=== PATIENT | female | born 1940 | race Caucasian/White ===

== ENCOUNTER → 2016-12-15 | Outpatient (CLI) | payer MEDICARE, OTHER ==
[2016-12-15 09:39] LABS: ALANINE AMINOTRANSFERASE 38 U/L (9-52); ALBUMIN 3.6 g/dL (3.5-5.0); ALKALINE PHOSPHATASE 75 U/L (38-126); ASPARTATE AMINO TRANSFERASE 23 U/L (14-36); BILIRUBIN,DIRECT 0.3 mg/dL (0.0-0.4); BILIRUBIN,TOTAL 0.8 mg/dL (0.2-1.3); CHOLESTEROL 116.38 mg/dL (0-200); DIRECT LDL 38 mg/dL (<100); Direct HDL 58 mg/dL (>40); TOTAL PROTEIN 6.2 g/dL (6.3-8.2); TRIGLYCERIDES 48 mg/dL (<150)
== END ==
LOC: OD 08:10
PROVIDERS: ATTEND Specialist
DX: E11.22 Type 2 diabetes mellitus with diabetic chronic kidney disease (principal); N18.2 Chronic kidney disease, stage 2 (mild); E78.5 Hyperlipidemia, unspecified; E66.3 Overweight; I10 Essential (primary) hypertension; I34.9 Nonrheumatic mitral valve disorder, unspecified; I87.2 Venous insufficiency (chronic) (peripheral); M06.9 Rheumatoid arthritis, unspecified; Z79.899 Other long term (current) drug therapy
CPT/HCPCS: 36415; 80061; 80076; 83036

== ENCOUNTER → 2017-04-19 | Outpatient (CLI) | payer MEDICARE, OTHER ==
[2017-04-19 09:57] LABS: HEMATOCRIT 37.4 % (36.0-47.0); HEMOGLOBIN 12.4 g/dL (12.0-15.5); HGB HCT DIFFERENCE -0.2; MEAN CORPUSCULAR HGB CONC 33.1 g/dL (32.0-36.0); MEAN CORPUSCULAR VOLUME 90 fl (80-97); RED BLOOD COUNT 4.14 10^6/uL (3.72-5.28); RED CELL DISTRIBUTION WIDTH 14.1 % (11.5-14.0); WHITE BLOOD COUNT 5.3 10^3/uL (4.0-10.5)
[2017-04-19 10:21] LABS: ANION GAP 7 (5-19); BLOOD UREA NITROGEN 31 mg/dL (7-20); CALCIUM 10.5 mg/dL (8.4-10.2); CARBON DIOXIDE 26 mmol/L (22-30); CHLORIDE 109 mmol/L (98-107); CREATININE RESULT 0.82 mg/dL (0.52-1.25); GLUCOSE 81 mg/dL (75-110); POTASSIUM 4.7 mmol/L (3.6-5.0); SODIUM 142.2 mmol/L (137-145)
[2017-04-19 14:32] LABS: APPEARANCE,URINE SLIGHTLY-CLOUDY; BILIRUBIN,URINE NEGATIVE (NEGATIVE); GLUCOSE, URINE NEGATIVE (NEGATIVE); KETONES,URINE NEGATIVE (NEGATIVE); LEUKOCYTE ESTERASE,URINE LARGE (NEGATIVE); NITRITE,URINE NEGATIVE (NEGATIVE); PROTEIN,URINE 100 mg/dL (NEGATIVE); URINE SPECIFIC GRAVITY 1.016; UROBILINOGEN,URINE NEGATIVE mg/dL (<2.0)
== END ==
LOC: OD 08:30
PROVIDERS: ATTEND Internal Medicine Nephrology
DX: I12.9 Hypertensive chronic kidney disease with stage 1 through stage 4 chronic kidney disease, or unspecified chronic kidney disease (principal); N18.3 Chronic kidney disease, stage 3 (moderate); D64.9 Anemia, unspecified
CPT/HCPCS: 36415; 80048; 81001; 82043; 82570; 85027

== ENCOUNTER → 2017-06-29 | Outpatient (CLI) | payer MEDICARE, OTHER ==
[2017-06-29 11:15] LABS: ALANINE AMINOTRANSFERASE 35 U/L (9-52); ALBUMIN 3.6 g/dL (3.5-5.0); ALKALINE PHOSPHATASE 73 U/L (38-126); ASPARTATE AMINO TRANSFERASE 18 U/L (14-36); BILIRUBIN,DIRECT 0.4 mg/dL (0.0-0.4); BILIRUBIN,TOTAL 0.7 mg/dL (0.2-1.3); CHOLESTEROL 115.49 mg/dL (0-200); Direct HDL 65 mg/dL (>40); TOTAL PROTEIN 5.5 g/dL (6.3-8.2); TRIGLYCERIDES 46 mg/dL (<150)
[2017-06-29 11:26] LABS: DIRECT LDL 38 mg/dL (<100)
== END ==
LOC: OD 09:35
PROVIDERS: ATTEND Specialist
DX: E11.9 Type 2 diabetes mellitus without complications (principal); E78.5 Hyperlipidemia, unspecified; I12.9 Hypertensive chronic kidney disease with stage 1 through stage 4 chronic kidney disease, or unspecified chronic kidney disease; N18.2 Chronic kidney disease, stage 2 (mild); E66.3 Overweight; I34.9 Nonrheumatic mitral valve disorder, unspecified; I87.2 Venous insufficiency (chronic) (peripheral); M06.9 Rheumatoid arthritis, unspecified; Z79.899 Other long term (current) drug therapy
CPT/HCPCS: 36415; 80061; 80076; 83036

== ENCOUNTER → 2017-12-20 | Outpatient (CLI) | payer MEDICARE, OTHER ==
[2017-12-20 10:58] LABS: HEMATOCRIT 35.8 % (36.0-47.0); HEMOGLOBIN 11.6 g/dL (12.0-15.5); MEAN CORPUSCULAR HEMOGLOBIN 28.2 pg (27.0-33.4); MEAN CORPUSCULAR HGB CONC 32.4 g/dL (32.0-36.0); MEAN CORPUSCULAR VOLUME 87 fl (80-97); PLATELET COUNT 169 10^3/uL (150-450); RED BLOOD COUNT 4.12 10^6/uL (3.72-5.28); RED CELL DISTRIBUTION WIDTH 16.2 % (11.5-14.0); WHITE BLOOD COUNT 5.5 10^3/uL (4.0-10.5)
[2017-12-20 11:24] LABS: ANION GAP 10 (5-19); BLOOD UREA NITROGEN 37 mg/dL (7-20); CALCIUM 10.8 mg/dL (8.4-10.2); CARBON DIOXIDE 28 mmol/L (22-30); CHLORIDE 105 mmol/L (98-107); GLUCOSE 81 mg/dL (75-110); POTASSIUM 5.1 mmol/L (3.6-5.0)
[2017-12-20 13:39] LABS: APPEARANCE,URINE SLIGHTLY-CLOUDY; BILIRUBIN,URINE NEGATIVE (NEGATIVE); COLOR,URINE YELLOW; GLUCOSE, URINE NEGATIVE (NEGATIVE); KETONES,URINE NEGATIVE (NEGATIVE); LEUKOCYTE ESTERASE,URINE LARGE (NEGATIVE); NITRITE,URINE NEGATIVE (NEGATIVE); PROTEIN,URINE NEGATIVE (NEGATIVE); URINE SPECIFIC GRAVITY 1.016; UROBILINOGEN,URINE NEGATIVE mg/dL (<2.0)
[2017-12-21 13:38] LABS: CREATININE URINE 55.2 mg/dL (Not Estab.); MICROALBUMIN URINE 81.8 ug/mL (Not Estab.)
== END ==
LOC: OD 10:09
PROVIDERS: ATTEND Internal Medicine Nephrology
DX: I12.9 Hypertensive chronic kidney disease with stage 1 through stage 4 chronic kidney disease, or unspecified chronic kidney disease (principal); N18.2 Chronic kidney disease, stage 2 (mild); E87.5 Hyperkalemia; R80.9 Proteinuria, unspecified
CPT/HCPCS: 36415; 80048; 81001; 82043; 82570; 85027

== ENCOUNTER → 2018-03-04 | Outpatient (CLI) | payer MEDICARE, OTHER ==
[2018-03-04 09:41] LABS: ALANINE AMINOTRANSFERASE 18 U/L (9-52); ALBUMIN 3.7 g/dL (3.5-5.0); ALKALINE PHOSPHATASE 71 U/L (38-126); ANION GAP 12 (5-19); ASPARTATE AMINO TRANSFERASE 18 U/L (14-36); BILIRUBIN,DIRECT 0.3 mg/dL (0.0-0.4); BILIRUBIN,TOTAL 0.5 mg/dL (0.2-1.3); BLOOD UREA NITROGEN 26 mg/dL (7-20); CALCIUM 10.1 mg/dL (8.4-10.2); CARBON DIOXIDE 22 mmol/L (22-30); CHLORIDE 107 mmol/L (98-107); CHOLESTEROL 123.43 mg/dL (0-200); GLUCOSE 85 mg/dL (75-110); POTASSIUM 4.7 mmol/L (3.6-5.0); SODIUM 140.9 mmol/L (137-145); TOTAL PROTEIN 6.5 g/dL (6.3-8.2); TRIGLYCERIDES 42 mg/dL (<150)
[2018-03-04 09:52] LABS: DIRECT LDL 41 mg/dL (<100)
== END ==
LOC: OD 08:28
PROVIDERS: ATTEND Internal Medicine
DX: I34.0 Nonrheumatic mitral (valve) insufficiency (principal); I36.1 Nonrheumatic tricuspid (valve) insufficiency; E11.22 Type 2 diabetes mellitus with diabetic chronic kidney disease; I12.9 Hypertensive chronic kidney disease with stage 1 through stage 4 chronic kidney disease, or unspecified chronic kidney disease; N18.2 Chronic kidney disease, stage 2 (mild); E78.4 Other hyperlipidemia; I87.2 Venous insufficiency (chronic) (peripheral); M06.9 Rheumatoid arthritis, unspecified; R01.1 Cardiac murmur, unspecified; Z79.899 Other long term (current) drug therapy
CPT/HCPCS: 36415; 80053; 80061

== ENCOUNTER 2018-05-29 04:34 | Emergency (ER) | payer MEDICARE, OTHER ==
[2018-05-29] MEDS ORDERED: ONDANSETRON HCL INJ/PF 4 MG/2 ML SDV IV ONE (04:48)
--- NOTE | 2018-05-29 04:51 | ER Document Report ---
Doctor's Note Notes: 05/29/18 04:49 I performed a trace evaluation of the patient. Patient is a pleasant 78-year- old female with a history of renal insufficiency. She says for last 2 weeks she is only had very small hard bowel movement. She is having slightly worsening abdominal pain. Mild distention. She also had recurrent vomiting. She says she is vomited currently for last several days. When paramedics arrived and noticed that she was hypotensive. They gave her 250 mL's of normal saline. This corrected her blood pressure. Her blood pressure currently is 102 /54. She denies any fevers. She says when she vomits she did notice some red material her vomit. She is unsure if this is blood or it is because 1 of her medication she takes is red. She does not think she has had a fever. She has no other complaints this time. She denies any chest pain at this time. On exam her abdomen is little bit distended. She has previous scars from previous cholecystectomy. She also has a large ventral scar. Unclear exactly what the surgery is from. Abdomen is slightly distended. She does have good bowel sounds. Abdomen is diffusely mildly tender to palpation. Patient does appear little bit dehydrated. I will order IV fluids. Of ordered baseline blood work as well as her CT scan with oral contrast. EKG has been performed does not show any evidence of acute DE. Dictation of this chart was performed using voice recognition software; therefore, there may be some unintended grammatical errors.
[2018-05-29] MEDS: NORMAL SALINE 1000 ML 1,000 ML IV ONE ×2 (05:20→07:43)
[2018-05-29 05:23] LABS: HEMATOCRIT 42.4 % (36.0-47.0); HEMOGLOBIN 13.6 g/dL (12.0-15.5); MEAN CORPUSCULAR HEMOGLOBIN 28.1 pg (27.0-33.4); MEAN CORPUSCULAR VOLUME 88 fl (80-97); PLATELET COUNT 280 10^3/uL (150-450); RED BLOOD COUNT 4.82 10^6/uL (3.72-5.28); RED CELL DISTRIBUTION WIDTH 16.1 % (11.5-14.0); WHITE BLOOD COUNT 17.3 10^3/uL (4.0-10.5)
[2018-05-29 05:38] LABS: ABSOLUTE LYMPHOCYTES# (MANUAL) 0.9 10^3/uL (0.5-4.7); ABSOLUTE MONOCYTES # (MANUAL) 0.9 10^3/uL (0.1-1.4); ABSOLUTE NEUTROPHILS# (MANUAL) 15.6 10^3/uL (1.7-8.2); BASOPHILS % (MANUAL) 0 % (0-2); EOSINOPHILS % (MANUAL) 0 % (0-6); LYMPHOCYTES % (MANUAL) 5 % (13-45); MONOCYTES % (MANUAL) 5 % (3-13); SEGMENTED NEUTROPHILS % (MAN) 90 % (42-78); TOTAL CELLS COUNTED 100
[2018-05-29 05:39] LABS: ANISOCYTOSIS 1+; BURR CELLS 1+; PLATELET COMMENT ADEQUATE; POLYCHROMASIA 1+
--- NOTE | 2018-05-29 05:40 | RADIOLOGY REPORT (SQ) ---
EXAM DESCRIPTION: XR CHEST 1 VIEW COMPLETED DATE/TME: 05/29/2018 04:47 CLINICAL HISTORY: 78 years Female, abdominal pain, Please get full diaphragm view COMPARISON: None. NUMBER OF VIEWS/TECHNIQUE: 1/AP FINDINGS: Increased lung volume, prominent interstitium, large right skin fold artifact pattern, small blunting-effusion of the right costophrenic angle, normal cardiac silhouette, atherosclerosis, and intact bony thorax. Old granulomatous disease. IMPRESSION: No acute cardiopulmonary findings.
[2018-05-29] MEDS ORDERED: CEFTRIAXONE INJ 1000 MG VIAL IV ONE (06:13)
[2018-05-29 06:24] LABS: ALANINE AMINOTRANSFERASE 30 U/L (9-52); ALBUMIN 3.9 g/dL (3.5-5.0); ALKALINE PHOSPHATASE 75 U/L (38-126); ASPARTATE AMINO TRANSFERASE 30 U/L (14-36); BILIRUBIN,DIRECT 0.6 mg/dL (0.0-0.4); BILIRUBIN,TOTAL 1.3 mg/dL (0.2-1.3); BLOOD UREA NITROGEN 87 mg/dL (7-20); GLUCOSE 136 mg/dL (75-110); POTASSIUM 4.3 mmol/L (3.6-5.0); TOTAL PROTEIN 6.4 g/dL (6.3-8.2)
[2018-05-29] MEDS ORDERED: PANTOPRAZOLE SODIUM 40 MG VIAL IV ONE (06:27)
[2018-05-29 06:29] LABS: CARBON DIOXIDE 28 mmol/L (22-30); CHLORIDE 93 mmol/L (98-107); SODIUM 142.2 mmol/L (137-145)
[2018-05-29] MEDS ORDERED: NORMAL SALINE 500 ML with OCTREOTIDE ACETATE 500 MCG IV PRN ×2 (06:31)
[2018-05-29 06:35] LABS: ANION GAP 21 (5-19)
--- NOTE | 2018-05-29 06:36 | ER Document Report ---
ED General - General Chief Complaint: General Weakness Stated Complaint: WEAKNESS Time Seen by Provider: 05/29/18 04:46 TRAVEL OUTSIDE OF THE [place] IN LAST 30 DAYS: No - HPI Notes: Patient is a 78-year-old female that presents to the emergency department for chief complaint of nausea vomiting and constipation. Patient reports 2 weeks of nausea and vomiting. She was initially relating her symptoms to a new medication that her doctor has started her on for urinary incontinence. 2 weeks ago after stopping the first medication she had some temporary improvement of her nausea and vomiting. She was restarted on a new medication and the vomiting continued. She has been off of this medication now for 4 days and has had continued worsening of her nausea and vomiting. states she has been increasingly fatigued with poor appetite. Patient states since onset of her symptoms she has had bright red blood or dark blood in her vomit. She has not had a bowel movement in the last few days. She reports abdominal distention and diffuse generalized pain. The pain is achy and nonradiating. She denies any aggravating or relieving factors to her pain. She denies any known fevers. She does report some urinary urgency but denies cough and congestion. She has a history of uterine prolapse and frequent UTIs. Past Medical History: Diabetes, CKD, rheumatoid arthritis, hypertension, hyperlipidemia Past Surgical History: Cholecystectomy Social History: Denies drugs alcohol and tobacco Family History: Reviewed and noncontributory for presenting illness Allergies: Reviewed, see documented allergy list. REVIEW OF SYSTEMS: CONSTITUTIONAL : No fever No chills No diaphoresis No recent illness EENT: No vision changes No congestion No sore throat CARDIOVASCULAR: No chest pain No palpitations RESPIRATORY: No shortness of breath No cough No difficulty breathing GASTROINTESTINAL: abdominal pain nausea vomiting No diarrhea GENITOURINARY: No dysuria No hematuria No difficulty urinating Urinary urgency MUSCULOSKELETAL: No back pain No leg pain No arm pain SKIN: No rashes No lesions LYMPHATIC: No swollen, enlarged glands. NEUROLOGICAL: No lightheadedness No headache No weakness No paresthesias PSYCHIATRIC: No anxiety No depression PHYSICAL EXAMINATION: Vital signs reviewed, nursing noted reviewed. GENERAL: Well-appearing, well-nourished and in no acute distress. HEAD: Atraumatic, normocephalic. EYES: Eyes appear normal, extraocular movements intact, sclera anicteric, conjunctiva are normal. ENT: nares patent, oropharynx clear without exudates. dry mucous membranes. NECK: Normal range of motion, supple without lymphadenopathy LUNGS: Breath sounds clear to auscultation bilaterally and equal. No wheezes rales or rhonchi. HEART: Regular rate and rhythm without murmurs ABDOMEN: Soft, mildly distended, mild diffuse tenderness, normoactive bowel sounds. No rebound, guarding, or rigidity. No masses appreciated. EXTREMITIES: Nontender, good range of motion, no pitting or edema. NEUROLOGICAL: No focal neurological deficits. Moves all extremities spontaneously Motor and sensory grossly intact on exam. PSYCH: Normal mood, normal affect. SKIN: Warm, Dry, normal turgor, no rashes or lesions noted on exposed skin - Related Data Allergies/Adverse Reactions: latex Allergy (Verified 04/14/16 08:44) Rash Past Medical History - Social History Smoking Status: Never Smoker Family History: Reviewed & Not Pertinent - Past Medical History Cardiac Medical History: Reports: Hx Hypercholesterolemia, Hx Hypertension Denies: Hx Coronary Artery Disease, Hx Heart Attack Pulmonary Medical History: Denies: Hx Asthma, Hx Bronchitis, Hx COPD, Hx Pneumonia Neurological Medical History: Denies: Hx Cerebrovascular Accident, Hx Seizures Endocrine Medical History: Reports: Hx Diabetes Mellitus Type 2 - DIET CONTROLLED GI Medical History: Reports: Hx Diverticulitis, Hx Gastroesophageal Reflux Disease Musculoskeletal Medical History: Reports Hx Arthritis - rheumatoid Past Surgical History: Reports: Hx Abdominal Surgery - colon resection, Hx Bowel Surgery, Hx Cholecystectomy, Hx Orthopedic Surgery - left ankle. Denies: Hx Hysterectomy - Immunizations Hx Diphtheria, Pertussis, Tetanus Vaccination: No Hx Pneumococcal Vaccination: 12/18/15 Review of Systems - Review of Systems Notes: Dictated Physical Exam - Vital signs Vitals: Resp 14 05/29/18 04:39 - Notes Notes: Dictated Course - Re-evaluation Re-evalutation: 05/29/18 06:35 Vitals reviewed. Nursing notes reviewed. Patient is Gastroccult positive and had a large coffee-ground emesis while in the ED. She was started on octreotide , Protonix and IV fluids for her upper GI bleed. Her hemoglobin is stable currently. Blood pressure has improved with hydration. Patient also is meeting septic shock criteria with a WBC count of 17 and a lactic acid greater than 4. She will be started on Rocephin for likely urinary tract infection leading to her sepsis as well as the benefits of Rocephin for upper GI bleeding. 05/29/18 07:42 Patient reevaluated. Her core temperature has improved. She is still receiving her 30 mL/kg fluid bolus. Blood pressure is improving. Patient given octreotide and started on Protonix infusion. CT scan shows small bowel obstruction, NG tube will be placed. Case discussed with Dr. Bragg at [facility] who is accepted transfer for admission in the ICU. Patient requiring transfer for GI evaluation. Patient and family are in agreement with this plan. Laboratory 05/29/18 05/29/18 05/29/18 05:00 05:00 05:00 WBC 17.3 H RBC 4.82 Hgb 13.6 Hct 42.4 MCV 88 MCH 28.1 MCHC 32.0 RDW 16.1 H Plt Count 280 Total Counted 100 Seg Neutrophils % Not Reportable Seg Neuts % (Manual) 90 H Lymphocytes % Not Reportable Lymphocytes % (Manual) 5 L Monocytes % Not Reportable Monocytes % (Manual) 5 Eosinophils % Not Reportable Eosinophils % (Manual) 0 Basophils % Not Reportable Basophils % (Manual) 0 Absolute Neutrophils Not Reportable Abs Neuts (Manual) 15.6 H Absolute Lymphocytes Not Reportable Abs Lymphs (Manual) 0.9 Absolute Monocytes Not Reportable Abs Monocytes (Manual) 0.9 Absolute Eosinophils Not Reportable Absolute Eos (Manual) 0.0 Absolute Basophils Not Reportable Abs Basophils (Manual) 0.0 Platelet Comment ADEQUATE Polychromasia 1+ Anisocytosis 1+ [place] Cells 1+ Sodium Cancelled Potassium Cancelled Chloride Cancelled Carbon Dioxide Cancelled Anion Gap Cancelled BUN Cancelled Creatinine Cancelled Est GFR ( Amer) Cancelled Est GFR (Non-Af Amer) Cancelled Glucose Cancelled Lactic Acid 4.6 H Calcium Cancelled Total Bilirubin Cancelled Direct Bilirubin Cancelled Neonat Total Bilirubin Cancelled Neonat Direct Bilirubin Cancelled Neonat Indirect Bili Cancelled AST Cancelled ALT Cancelled Alkaline Phosphatase Cancelled Troponin I Total Protein Cancelled Albumin Cancelled Gastric Occult Blood Blood Type Antibody Screen 05/29/18 05/29/18 05/29/18 05:00 05:45 05:45 WBC RBC Hgb Hct MCV MCH MCHC RDW Plt Count Total Counted Seg Neutrophils % Seg Neuts % (Manual) Lymphocytes % Lymphocytes % (Manual) Monocytes % Monocytes % (Manual) Eosinophils % Eosinophils % (Manual) Basophils % Basophils % (Manual) Absolute Neutrophils Abs Neuts (Manual) Absolute Lymphocytes Abs Lymphs (Manual) Absolute Monocytes Abs Monocytes (Manual) Absolute Eosinophils Absolute Eos (Manual) Absolute Basophils Abs Basophils (Manual) Platelet Comment Polychromasia Anisocytosis [place] Cells Sodium 142.2 Potassium 4.3 Chloride 93 L Carbon Dioxide 28 Anion Gap 21 H BUN 87 H Creatinine 2.10 H Est GFR ( Amer) 28 L Est GFR (Non-Af Amer) 23 L Glucose 136 H Lactic Acid Calcium 13.5 H* Total Bilirubin 1.3 Direct Bilirubin 0.6 H Neonat Total Bilirubin Not Reportable Neonat Direct Bilirubin Not Reportable Neonat Indirect Bili Not Reportable AST 30 ALT 30 Alkaline Phosphatase 75 Troponin I Cancelled 0.129 Total Protein 6.4 Albumin 3.9 Gastric Occult Blood Blood Type Antibody Screen 05/29/18 05/29/18 06:21 06:29 WBC RBC Hgb Hct MCV MCH MCHC RDW Plt Count Total Counted Seg Neutrophils % Seg Neuts % (Manual) Lymphocytes % Lymphocytes % (Manual) Monocytes % Monocytes % (Manual) Eosinophils % Eosinophils % (Manual) Basophils % Basophils % (Manual) Absolute Neutrophils Abs Neuts (Manual) Absolute Lymphocytes Abs Lymphs (Manual) Absolute Monocytes Abs Monocytes (Manual) Absolute Eosinophils Absolute Eos (Manual) Absolute Basophils Abs Basophils (Manual) Platelet Comment Polychromasia Anisocytosis Mk Cells Sodium Potassium Chloride Carbon Dioxide Anion Gap BUN Creatinine Est GFR ( Amer) Est GFR (Non-Af Amer) Glucose Lactic Acid Calcium Total Bilirubin Direct Bilirubin Neonat Total Bilirubin Neonat Direct Bilirubin Neonat Indirect Bili AST ALT Alkaline Phosphatase Troponin I Total Protein Albumin Gastric Occult Blood POSITIVE Blood Type O POSITIVE Antibody Screen NEGATIVE Chest X-Ray 05/29/18 04:47 IMPRESSION: No acute cardiopulmonary findings. 05/29/18 08:51 Patient reevaluated just prior to transportation and has remained hemodynamically stable. NG tube is appropriately placed on KUB. Patient states she is still feeling better. Stable for transportation. - Vital Signs Vital signs: Temp Pulse Resp BP Pulse Ox 98.5 F 19 100/49 L 93 05/29/18 08:40 05/29/18 08:40 05/29/18 08:40 05/29/18 08:40 - Laboratory Result Diagrams: 05/29/18 05:00 05/29/18 05:45 Laboratory results interpreted by me: 05/29/18 05/29/18 05/29/18 05:00 05:00 05:45 WBC 17.3 H RDW 16.1 H Seg Neuts % (Manual) 90 H Lymphocytes % (Manual) 5 L Abs Neuts (Manual) 15.6 H Chloride 93 L Anion Gap 21 H BUN 87 H Creatinine 2.10 H Est GFR ( Amer) 28 L Est GFR (Non-Af Amer) 23 L Glucose 136 H Lactic Acid 4.6 H Calcium 13.5 H* Direct Bilirubin 0.6 H Urine Protein Urine Ketones 05/29/18 08:00 WBC RDW Seg Neuts % (Manual) Lymphocytes % (Manual) Abs Neuts (Manual) Chloride Anion Gap BUN Creatinine Est GFR ( Amer) Est GFR (Non-Af Amer) Glucose Lactic Acid Calcium Direct Bilirubin Urine Protein 30 H Urine Ketones TRACE H Critical Care Note - Critical Care Note Total time excluding time spent on procedures (mins): 90 Comments: Multiple re-evaluations. Discussion with medical record administrator. Management of hemodynamics with potential for hemodynamic compromise and collapse. Patient actively bleeding. Metabolic derangement. Discharge - Discharge Clinical Impression: Small bowel obstruction, Septic shock, Upper GI bleed, Hypercalcemia, Renal insufficiency, Lactic acidosis Condition: Stable Disposition: [facility]
[2018-05-29 06:37] LABS: CALCIUM 13.5 mg/dL (8.4-10.2)
[2018-05-29] MEDS: OCTREOTIDE ACETATE INJ/PF 100 MCG/1 ML SDV ONE ×2 (07:10→07:42)
[2018-05-29] MEDS: NORMAL SALINE 1000 ML 1,000 ML IV PRN ×2 (07:12→07:44)
--- NOTE | 2018-05-29 07:17 | RADIOLOGY REPORT (SQ) ---
EXAM DESCRIPTION: CT ABDOMEN PELVIS WITHOUT IV CONTRAST COMPLETED DATE/TME: 05/29/2018 04:46 CLINICAL HISTORY: 78 years Female, abdominal pain, vomiting Comparison: None. Technique: No contrast. Coronal and sagittal reformat. This exam was performed according to our departmental dose-optimization program, which includes automated exposure control, adjustment of the mA and/or kV according to patient size and/or use of iterative reconstruction technique.[facility]: Dose Right [facility]: CareDose [facility]: Dose Right [facility]: Teradose 4D [facility]: Mirriad LIMITATIONS: None Findings: Permanent small bowel obstruction pattern includes numerous loops of 5.0 cm dilated small bowel with air-fluid levels, dilated stomach and distal esophagus, nondistended ileum, transition zone probably at the distal jejunum or proximal ileum not focally discerned. No ascites. No pneumoperitoneum. Coronary arterial calcification. Atherosclerosis. Old granulomatous disease. Cholecystectomy. Degenerative disc disease. Osteoarthritis. Pessary. Prominent adrenal glands. Unenhanced lower thorax, abdominopelvic structures, and musculoskeleton appear otherwise grossly unremarkable. Impression: Moderate grade small bowel obstruction. Immediate Surgical referral advised.
[2018-05-29] MEDS ORDERED: PHARMACY COMMUNICATION ORDER MC NR (07:30)
[2018-05-29] MEDS ORDERED: PANTOPRAZOLE SODIUM 40 MG VIAL IV PRN (08:17)
[2018-05-29 08:31] LABS: APPEARANCE,URINE CLOUDY; BILIRUBIN,URINE NEGATIVE (NEGATIVE); COLOR,URINE YELLOW; GLUCOSE, URINE NEGATIVE (NEGATIVE); KETONES,URINE TRACE mg/dL (NEGATIVE); LEUKOCYTE ESTERASE,URINE NEGATIVE (NEGATIVE); NITRITE,URINE NEGATIVE (NEGATIVE); PROTEIN,URINE 30 mg/dL (NEGATIVE); URINE SPECIFIC GRAVITY 1.017; UROBILINOGEN,URINE NEGATIVE mg/dL (<2.0)
[2018-05-29 08:50] VITALS: BP 100/49
--- NOTE | 2018-05-29 08:53 | RADIOLOGY REPORT (SQ) ---
EXAM DESCRIPTION: KUB/ABDOMEN (SINGLE VIEW) COMPLETED DATE/TIME: 05/29/2018 8:42 am REASON FOR STUDY: Check Placement of NG Tube COMPARISON: CT from earlier. FINDINGS: 2 images of the upper abdomen to assess nasogastric tube placement. Nasogastric tube has its tip projecting over the lower mediastinum, likely within a hiatal hernia see n on the recent CT. Nonobstructive bowel gas pattern. TECHNICAL DOCUMENTATION: JOB ID: [id number] Reading location - IP/workstation name: [email or web address]
--- NOTE | 2018-05-29 17:48 | EKG REPORT ---
SEVERITY:- DEFECTIVE ECG - SINUS RHYTHM SEVERE BASELINE TREMORS. : Confirmed by: Jian Vasquez MD 29-May-2018 17:47:16
== END 2018-05-29 09:15 | disposition short-term general hospital (02) ==
LOC: ER 04:34
DX: A41.9 Sepsis, unspecified organism (principal); R65.21 Severe sepsis with septic shock; K56.609 Unspecified intestinal obstruction, unspecified as to partial versus complete obstruction; K92.2 Gastrointestinal hemorrhage, unspecified; E83.52 Hypercalcemia; N28.9 Disorder of kidney and ureter, unspecified; E87.2 Acidosis; E11.9 Type 2 diabetes mellitus without complications; I10 Essential (primary) hypertension; R10.84 Generalized abdominal pain; R39.15 Urgency of urination; Z87.440 Personal history of urinary (tract) infections; Z90.49 Acquired absence of other specified parts of digestive tract; Z91.040 Latex allergy status; Z87.19 Personal history of other diseases of the digestive system
CPT/HCPCS: 93005; 86900; 86901; 36415; 87040; 86850; 83605; 85025; 82271; 80053; 81001; 84484; 71045; 74018; 74176; 93010; J2354; C9113; J0696; J2405; J7030; 96365; 96366; 96368; 96375; 96376; 99291; 99292; S0164

== ENCOUNTER → 2018-08-24 | Outpatient (CLI) | payer MEDICARE, OTHER ==
[2018-08-24 08:40] LABS: HEMATOCRIT 29.3 % (36.0-47.0); HEMOGLOBIN 9.6 g/dL (12.0-15.5); MEAN CORPUSCULAR HGB CONC 32.9 g/dL (32.0-36.0); MEAN CORPUSCULAR VOLUME 91 fl (80-97); PLATELET COUNT 204 10^3/uL (150-450); RED BLOOD COUNT 3.21 10^6/uL (3.72-5.28); RED CELL DISTRIBUTION WIDTH 18.3 % (11.5-14.0); WHITE BLOOD COUNT 6.4 10^3/uL (4.0-10.5)
[2018-08-24 08:42] LABS: APPEARANCE,URINE SLIGHTLY-CLOUDY; BILIRUBIN,URINE NEGATIVE (NEGATIVE); COLOR,URINE YELLOW; GLUCOSE, URINE NEGATIVE (NEGATIVE); KETONES,URINE NEGATIVE (NEGATIVE); LEUKOCYTE ESTERASE,URINE LARGE (NEGATIVE); NITRITE,URINE NEGATIVE (NEGATIVE); PROTEIN,URINE NEGATIVE (NEGATIVE); URINE SPECIFIC GRAVITY 1.014; UROBILINOGEN,URINE NEGATIVE mg/dL (<2.0)
[2018-08-24 08:58] LABS: ANION GAP 8 (5-19); BLOOD UREA NITROGEN 29 mg/dL (7-20); CARBON DIOXIDE 27 mmol/L (22-30); CHLORIDE 107 mmol/L (98-107); GLUCOSE 77 mg/dL (75-110); POTASSIUM 4.3 mmol/L (3.6-5.0); SODIUM 141.7 mmol/L (137-145)
== END ==
LOC: OD 07:51
PROVIDERS: ATTEND Physician Assistant Medical
DX: I12.9 Hypertensive chronic kidney disease with stage 1 through stage 4 chronic kidney disease, or unspecified chronic kidney disease (principal); N18.2 Chronic kidney disease, stage 2 (mild); D64.9 Anemia, unspecified
CPT/HCPCS: 36415; 80048; 81001; 85027

== ENCOUNTER → 2019-02-21 | Outpatient (CLI) | payer MEDICARE, OTHER ==
[2019-02-21 10:10] LABS: HEMATOCRIT 36.9 % (36.0-47.0); HEMOGLOBIN 12.2 g/dL (12.0-15.5); MEAN CORPUSCULAR HEMOGLOBIN 29.7 pg (27.0-33.4); MEAN CORPUSCULAR VOLUME 90 fl (80-97); PLATELET COUNT 169 10^3/uL (150-450); RED CELL DISTRIBUTION WIDTH 14.8 % (11.5-14.0); WHITE BLOOD COUNT 5.1 10^3/uL (4.0-10.5)
[2019-02-21 10:37] LABS: ANION GAP 6 (5-19); BLOOD UREA NITROGEN 35 mg/dL (7-20); CALCIUM 10.4 mg/dL (8.4-10.2); CARBON DIOXIDE 28 mmol/L (22-30); CHLORIDE 106 mmol/L (98-107); GLUCOSE 89 mg/dL (75-110); POTASSIUM 4.7 mmol/L (3.6-5.0)
[2019-02-21 12:32] LABS: APPEARANCE,URINE SLIGHTLY-CLOUDY; BILIRUBIN,URINE NEGATIVE (NEGATIVE); COLOR,URINE YELLOW; GLUCOSE, URINE NEGATIVE (NEGATIVE); KETONES,URINE NEGATIVE (NEGATIVE); LEUKOCYTE ESTERASE,URINE LARGE (NEGATIVE); NITRITE,URINE NEGATIVE (NEGATIVE); PROTEIN,URINE 30 mg/dL (NEGATIVE); URINE SPECIFIC GRAVITY 1.017; UROBILINOGEN,URINE NEGATIVE mg/dL (<2.0)
== END ==
LOC: OD 09:24
PROVIDERS: ATTEND Physician Assistant Medical
DX: I12.9 Hypertensive chronic kidney disease with stage 1 through stage 4 chronic kidney disease, or unspecified chronic kidney disease (principal); N18.2 Chronic kidney disease, stage 2 (mild); D64.9 Anemia, unspecified
CPT/HCPCS: 36415; 80048; 81001; 85027

== ENCOUNTER → 2020-03-26 | Outpatient (CLI) | payer MEDICARE, OTHER ==
[2020-03-26 11:28] LABS: ALBUMIN 3.6 g/dL (3.5-5.0); ALKALINE PHOSPHATASE 73 U/L (38-126); ASPARTATE AMINO TRANSFERASE 19 U/L (14-36); BILIRUBIN,DIRECT 0.2 mg/dL (0.0-0.4); BILIRUBIN,TOTAL 0.7 mg/dL (0.2-1.3); CHOLESTEROL 105.71 mg/dL (0-200); TOTAL PROTEIN 6.1 g/dL (6.3-8.2); TRIGLYCERIDES 68 mg/dL (<150)
[2020-03-26 11:40] LABS: DIRECT LDL 45 mg/dL (<100)
== END ==
LOC: OD 10:21
PROVIDERS: ATTEND Specialist
DX: I34.0 Nonrheumatic mitral (valve) insufficiency (principal); I36.1 Nonrheumatic tricuspid (valve) insufficiency; E78.49 Other hyperlipidemia; I87.2 Venous insufficiency (chronic) (peripheral); M06.9 Rheumatoid arthritis, unspecified; E11.22 Type 2 diabetes mellitus with diabetic chronic kidney disease; I12.9 Hypertensive chronic kidney disease with stage 1 through stage 4 chronic kidney disease, or unspecified chronic kidney disease; N18.2 Chronic kidney disease, stage 2 (mild); R01.1 Cardiac murmur, unspecified; Z79.899 Other long term (current) drug therapy
CPT/HCPCS: 36415; 80061; 80076; 83036